=== PATIENT | male | born 1960 | race Caucasian/White ===

== ENCOUNTER → 2022-03-01 | Outpatient (CLI) | payer OTHER ==
--- NOTE | 2022-03-01 14:25 | Diagnostic Imaging Report ---
INDICATION: PERSONAL HISTORY OF URINARY CALCULI COMPARISON: None FINDINGS: Single supine radiographic view of the abdomen was obtained and demonstrates nondistended loops of small bowel. There is no large collection of free peritoneal air. Mild air and stool are seen scattered throughout the colon. Punctate extraosseous calcifications are seen projecting over the superior pole of the right renal shadow. No unexpected radiopaque foreign bodies are identified. Bony structures show no gross acute abnormalities. IMPRESSION: 1. Nonobstructed small bowel gas pattern. 2. Possible right renal calculi. Dictated by: Dictated on workstation # [id number]
== END ==
LOC: RAD FS 11:39
PROVIDERS: ATTEND Urology
DX: Z87.442 Personal history of urinary calculi (principal)
CPT/HCPCS: 74018

== ENCOUNTER → 2022-04-28 | Outpatient (CLI) | payer OTHER ==
--- NOTE | 2022-04-28 14:45 | Diagnostic Imaging Report ---
INDICATION: Kidney stones, status post removal one week ago. TIME OF EXAM: 2:06 PM. COMPARISON: Correlation is made with prior radiograph from 03/01/2022. FINDINGS: Calcific densities overlie the renal shadows, bilaterally, suggestive of renal calculi. No definite calculi along the course of the ureters are identified. Bowel gas pattern is unremarkable. IMPRESSION: Findings consistent with bilateral renal calculi. Dictated by: Dictated on workstation # [id number]
== END ==
LOC: RAD FS 13:50
PROVIDERS: ATTEND Urology
DX: Z87.442 Personal history of urinary calculi (principal); Z98.890 Other specified postprocedural states
CPT/HCPCS: 74018

== ENCOUNTER → 2022-09-29 | Outpatient (CLI) | payer OTHER ==
--- NOTE | 2022-09-29 14:57 | Diagnostic Imaging Report ---
EXAMINATION: Abdomen 1 view HISTORY: HX RENAL CALCULI COMPARISON: 04/28/2022. FINDINGS: There is a moderate amount of gas and stool throughout the colon. Nonobstructive bowel gas pattern. No radiopaque foreign body. The lung bases are clear. The osseous structures are intact. IMPRESSION: Moderate stool burden without other acute abnormality in the abdomen. Dictated by: Dictated on workstation # [id number]
== END ==
LOC: RAD FS 10:27
PROVIDERS: ATTEND Urology
DX: Z87.442 Personal history of urinary calculi (principal)
CPT/HCPCS: 74018